=== PATIENT | male | born 1965 | race Caucasian/White ===

== ENCOUNTER 2019-01-21 15:18 | Emergency (ER) | payer OTHER, SELFPAY ==
--- NOTE | 2019-01-21 16:51 | RAD ---
RIGHT ANKLE THREE VIEWS: 01/21/19 HISTORY: Right ankle injury. FINDINGS: Ankle mortise and talar dome are intact. Soft tissue swelling overlying the lateral aspect of the hin dfoot. An irregular 5 mm ossific fragment lies just above the posterior aspect of the calcaneus on th e lateral view, at the anterior margin of the fat pad. IMPRESSION: Possible small ligamentous ossific avulsion just above the posterior margin of the calcaneus. No othe r acute osseous abnormalities are demonstrated. POS: NITISH
== END 2019-01-21 16:36 | disposition home or self-care (01) ==
LOC: SCSER 15:18
DX: S92.001A Unspecified fracture of right calcaneus, initial encounter for closed fracture (principal); I10 Essential (primary) hypertension; F17.220 Nicotine dependence, chewing tobacco, uncomplicated; W11.XXXA Fall on and from ladder, initial encounter